=== PATIENT | female | born 1945 | race Caucasian/White ===

== ENCOUNTER 2021-10-07 18:27 | Inpatient (IN) | payer OTHER, MEDICARE ==
[~2021-10-07] VITALS: Ht 165.1 cm; Wt 91.2 kg
[2021-10-07 19:15] VITALS: BP_SYST 155
[2021-10-07 20:41] LABS: BASOPHILS # (AUTO) 0.1 K/uL (0.0-0.2); EOSINOPHILS % (AUTO) 0.6 % (0.0-4.0); HEMATOCRIT 40.3 % (36-48); HEMOGLOBIN 13.8 g/dL (12.0-16.0); LYMPHOCYTES # (AUTO) 1.1 K/uL (1.0-5.5); LYMPHOCYTES % (AUTO) 13.6 % (20.5-51.5); MEAN CORPUSCULAR HEMOGLOBIN 30 pg (27-31); MEAN CORPUSCULAR HGB CONC 34 % (32-36); MEAN CORPUSCULAR VOLUME 89 fL (79.0-98.0); MONOCYTES # (AUTO) 0.4 K/uL (0.0-1.0); MONOCYTES % (AUTO) 5.6 % (1.7-9.3); NEUTROPHILS # (AUTO) 6.4 K/uL (1.8-7.7); NEUTROPHILS % (AUTO) 79.2 % (40.0-70.0); PLATELET COUNT (AUTO) 198 K/uL (130-430); RED BLOOD CELL COUNT(AUTO) 4.52 MIL/uL (4.2-6.2); RED CELL DISTRIBUTION WIDTH 13.5 % (9.0-15.0); WHITE BLOOD COUNT (AUTO) 8.1 K/uL (4.8-10.8)
[2021-10-07] MEDS ORDERED: iohexoL 350 mgI/mL, 100 ML INFUS..BTL IV ONE (21:10)
[2021-10-07 21:40] LABS: ANION GAP 10 (5-15); CHLORIDE 104 mmol/L (98-107); CREATININE 0.89 mg/dL (0.55-1.30); GLUCOSE 95 mg/dL (70-99); POTASSIUM 3.9 mmol/L (3.5-5.1); SODIUM SERUM 140 mmol/L (136-145); UREA NITROGEN, BLOOD 22 mg/dL (8-21)
[2021-10-07 21:54] LABS: ALANINE AMINOTRANSFERASE 14 U/L (12-78); ALBUMIN 3.7 g/dL (3.4-4.8); ASPARTATE AMINOTRANSFERASE 25 U/L (10-37); TOTAL BILIRUBIN 0.8 mg/dL (0.0-1.0)
[2021-10-07] MEDS ORDERED: LR 1,000 ML IV ONE (22:45)
[2021-10-07] MEDS ORDERED: PANTOPRAZOLE SODIUM 40 MG/VIAL (PROTONIX) IVP ONE (22:45)
[2021-10-07] MEDS ORDERED: ASPIRIN 81 MG TAB.CHEW PO ONE (22:45)
[2021-10-07 23:31] LABS: BILIRUBIN,URINE NEGATIVE (NEGATIVE); BLOOD, URINE 1+ (NEGATIVE); CLARITY/URINE CLEAR (CLEAR); COLOR,URINE YELLOW (YELLOW); GLUCOSE,URINE NEGATIVE (NEGATIVE); KETONES,URINE 2+ (NEGATIVE); LEUKOCYTE ESTERASE ,URINE NEGATIVE (NEGATIVE); NITRITE, URINE POSITIVE (NEGATIVE); PH,URINE 5.5 (5.0-8.0); PROTEIN URINE NEGATIVE (NEGATIVE); UROBILINOGEN,URINE 0.2 (0.2-1.0)
[2021-10-07] MEDS ORDERED: NOREPINEPHRINE 4 MG/4 ML VIAL IV ONE (23:59)
[2021-10-08 01:28] VITALS: BP_SYST 142
[2021-10-08 07:17] LABS: ANION GAP 7 (5-15); CALCIUM 8.9 mg/dL (8.4-11.0); CHLORIDE 104 mmol/L (98-107); CREATININE 0.81 mg/dL (0.55-1.30); GLUCOSE 97 mg/dL (70-99); SODIUM SERUM 142 mmol/L (136-145); UREA NITROGEN, BLOOD 18 mg/dL (8-21)
[2021-10-08 07:23] LABS: PROTHROMBIN TIME 10.7 SECS (9.5-12.5)
[2021-10-08 07:26] LABS: ALANINE AMINOTRANSFERASE 13 U/L (12-78); ALBUMIN 3.6 g/dL (3.4-4.8); ASPARTATE AMINOTRANSFERASE 22 U/L (10-37); PHOSPHORUS 3.5 mg/dL (2.7-4.5); TOTAL BILIRUBIN 0.9 mg/dL (0.0-1.0)
[2021-10-08 07:43] LABS: BASOPHILS % (AUTO) 0.5 % (0.0-2.0); EOSINOPHILS # (AUTO) 0.1 K/uL (0.0-0.4); HEMATOCRIT 40.9 % (36-48); LYMPHOCYTES # (AUTO) 1.2 K/uL (1.0-5.5); LYMPHOCYTES % (AUTO) 18.3 % (20.5-51.5); MEAN CORPUSCULAR HEMOGLOBIN 31 pg (27-31); MEAN CORPUSCULAR HGB CONC 34 % (32-36); MEAN CORPUSCULAR VOLUME 90 fL (79.0-98.0); MONOCYTES # (AUTO) 0.6 K/uL (0.0-1.0); MONOCYTES % (AUTO) 8.1 % (1.7-9.3); NEUTROPHILS # (AUTO) 4.9 K/uL (1.8-7.7); NEUTROPHILS % (AUTO) 72.1 % (40.0-70.0); PLATELET COUNT (AUTO) 213 K/uL (130-430); RED BLOOD CELL COUNT(AUTO) 4.57 MIL/uL (4.2-6.2); RED CELL DISTRIBUTION WIDTH 13.3 % (9.0-15.0); WHITE BLOOD COUNT (AUTO) 6.8 K/uL (4.8-10.8)
[2021-10-08 08:00] VITALS: BP_SYST 140
[2021-10-08] MEDS: PANTOPRAZOLE SODIUM 40 MG TAB PO SCH ×2 (08:50→08:58)
[2021-10-08] MEDS: ASPIRIN 81 MG TABLET(ECOTRIN) PO SCH ×2 (08:51→08:58)
[2021-10-08] MEDS ORDERED: cefTRIAXone 1 GM in D5W 50 ML IV SCH (09:00)
[2021-10-08 09:03] LABS: CHOLESTEROL 152 mg/dL (<200); HDL CHOLESTEROL 55 mg/dL (>55); LDL CHOLESTEROL 78 mg/dL (<100); TRIGLYCERIDES 63 mg/dL (30-150)
[2021-10-08] MEDS ORDERED: CIPROFLOXACIN HCL 500 MG TABLET PO SCH (10:00)
[2021-10-08 12:00] VITALS: BP_SYST 142
[2021-10-08 16:00] VITALS: BP_SYST 125
[2021-10-08 20:00] VITALS: BP_SYST 149
[2021-10-08 22:36] VITALS: BP_SYST 149
[2021-10-09] MEDS ORDERED: CIPR250T4 PO (10:09)
== END 2021-10-08 23:20 | disposition home or self-care (01) | DRG 690 ==
LOC: SED 18:27 → STU 22:47
PROVIDERS: ADMIT Internal Medicine; ATTEND Internal Medicine
DX: N39.0 Urinary tract infection, site not specified (principal); G45.9 Transient cerebral ischemic attack, unspecified; E66.9 Obesity, unspecified; I70.90 Unspecified atherosclerosis; Z20.822 Contact with and (suspected) exposure to COVID-19; Z68.33 Body mass index [BMI] 33.0-33.9, adult; Z90.49 Acquired absence of other specified parts of digestive tract
CPT/HCPCS: 36415; 70450-TC; 70496; 70498; 70551; 71045; 76376; 80053; 80061; 81003; 83735; 83880; 84100; 84484; 85025; 85610-TC; 85730-TC; 93005; 93306; 99285; C9113; G0378; J0696; J7060; Q9967

== ENCOUNTER 2022-04-18 22:25 | Inpatient (IN) | payer OTHER, MEDICARE ==
[~2022-04-18] VITALS: Ht 167.6 cm; Wt 93.5 kg
[~2022-04-18 22:25] MED LIST: CIPR250T4 PO
[2022-04-18 22:26] VITALS: BP_SYST 144
--- NOTE | 2022-04-18 22:29 | NUR ---
ER examining patient while in the ambulance [facility] in the [address].
--- NOTE | 2022-04-18 22:31 | NUR ---
Accucheck done at 2231 .BS 118.
--- NOTE | 2022-04-18 22:33 | NUR ---
CODE STROKE ACTIVATED.
--- NOTE | 2022-04-18 22:34 | NUR ---
Time Neurology was page.
--- NOTE | 2022-04-18 22:34 | NUR ---
Pt taken to CT awake via theresa w/ ACLS protocol.
--- NOTE | 2022-04-18 22:45 | NUR ---
Placed in room 6 . Placed on cardiac monitor technician, blood pressure machine and pulse oximeter. To gown for exam. Side rails up. Report given to NICO VINCENT(REG).
--- NOTE | 2022-04-18 22:53 | NUR ---
PT IS HERE TO BE EVALUATED FOR SUPECTING A STROKE, HAD NAUSEA AND VOOMITING, ONSET OF DIZINNES ASSOCIATED WITH USTEADY GAIT, PER ACCOUNTING METHODS ANALYST PT WAS ABLE TO WALK BUT WOBBLY AND ALWAYS FALLING TO LEFT SIDE. PT AWAKE AND ALERT AND ORIENTED X 4, ABLE TO ANSWER QUESTIONS. EFT LEG HAD SOME DIFFICULTY TO LIFT UP.
[2022-04-18] MEDS ORDERED: iohexoL 350 mgI/mL, 100 ML INFUS..BTL IV ONE (22:55)
--- NOTE | 2022-04-18 23:00 | NUR ---
Dr Monreal (neurology responded) at 2300hr.
[2022-04-18] MEDS ORDERED: MECLIZINE HCL 25 MG TABLET (ANITVERT) PO ONE (23:30)
[2022-04-18 23:36] LABS: BASOPHILS % (AUTO) 0.4 % (0.0-2.0); EOSINOPHILS # (AUTO) 0.2 K/uL (0.0-0.4); EOSINOPHILS % (AUTO) 2.4 % (0.0-4.0); HEMATOCRIT 38.9 % (36-48); LYMPHOCYTES # (AUTO) 1.3 K/uL (1.0-5.5); LYMPHOCYTES % (AUTO) 19.3 % (20.5-51.5); MEAN CORPUSCULAR HEMOGLOBIN 31 pg (27-31); MEAN CORPUSCULAR HGB CONC 33 % (32-36); MEAN CORPUSCULAR VOLUME 91 fL (79.0-98.0); MONOCYTES # (AUTO) 0.5 K/uL (0.0-1.0); MONOCYTES % (AUTO) 7.2 % (1.7-9.3); NEUTROPHILS # (AUTO) 4.7 K/uL (1.8-7.7); NEUTROPHILS % (AUTO) 70.7 % (40.0-70.0); PLATELET COUNT (AUTO) 193 K/uL (130-430); RED BLOOD CELL COUNT(AUTO) 4.25 MIL/uL (4.2-6.2); RED CELL DISTRIBUTION WIDTH 13.8 % (9.0-15.0); WHITE BLOOD COUNT (AUTO) 6.6 K/uL (4.8-10.8)
[2022-04-19] MEDS ORDERED: ASPIRIN 325 MG TABLET PO ONE
[2022-04-19 00:02] LABS: PROTHROMBIN TIME 10.6 SECS (9.5-12.5)
--- NOTE | 2022-04-19 00:19 | NUR ---
COVID SAMPLE COLLECTED AND SENT TO LAB
[2022-04-19 00:22] LABS: ANION GAP 13 (5-15); CALCIUM 9.4 mg/dL (8.4-11.0); CHLORIDE 103 mmol/L (98-107); CREATININE 0.88 mg/dL (0.55-1.30); GLUCOSE 125 mg/dL (70-99); UREA NITROGEN, BLOOD 25 mg/dL (8-21)
[2022-04-19 00:28] LABS: ALANINE AMINOTRANSFERASE 20 U/L (12-78); ALBUMIN 3.7 g/dL (3.4-4.8); ASPARTATE AMINOTRANSFERASE 28 U/L (10-37); TOTAL BILIRUBIN 0.4 mg/dL (0.0-1.0)
[2022-04-19 01:21] LABS: BILIRUBIN,URINE NEGATIVE (NEGATIVE); BLOOD, URINE TRACE (NEGATIVE); COLOR,URINE YELLOW (YELLOW); GLUCOSE,URINE NEGATIVE (NEGATIVE); KETONES,URINE NEGATIVE (NEGATIVE); LEUKOCYTE ESTERASE ,URINE NEGATIVE (NEGATIVE); NITRITE, URINE POSITIVE (NEGATIVE); PROTEIN URINE NEGATIVE (NEGATIVE); UROBILINOGEN,URINE 0.2 (0.2-1.0)
[2022-04-19 01:22] LABS: CLARITY/URINE HAZY (CLEAR)
[2022-04-19 01:42] LABS: BACTERIA,URINE MANY /HPF (None Seen)
--- NOTE | 2022-04-19 02:00 | NUR ---
BED COMMODE IS PROVIDED. SHE VOIDED 500 ML.
[2022-04-19] MEDS ORDERED: NACL 0.9% 1,000 ML IV ONE (02:30)
[2022-04-19] MEDS ORDERED: HEPARIN SODIUM,PORCINE 5,000 UNITS/ML VIAL IVP ONE (02:45)
[2022-04-19] MEDS ORDERED: *HEPARIN PER PHARMACY XX ONE ×2 (02:45→03:45)
[2022-04-19] MEDS ORDERED: cefTRIAXone 2 GM VIAL ONE (03:10)
[2022-04-19] MEDS ORDERED: HEPARIN SODIUM,PORCINE 2000 UNITS/0.4 ML BOLUS IVP PRN (03:45)
[2022-04-19] MEDS ORDERED: HEPARIN SODIUM,PORCINE 3000 UNITS/0.6 ML BOLUS IVP PRN (03:45)
--- NOTE | 2022-04-19 04:00 | NUR ---
Admit bed requested Patient will be admitted to care of Dr.A RAMIREZ. Admitted to TELE unit. Diagnosis CVA Inpatient (Yes or No) YES Observation (Yes or No) NO Orientation concerns or request close to nursing station (Yes or No) NO Covid Status NEGATIVE On vent or bipap NO Isolation requirements NO Needs a sitter NO From Home (Yes or if No enter name of facility) YES Requires Dialysis (Yes or No) NO Med Rec Completed (Yes of No) PT UNABLE TO RECALL
[2022-04-19] MEDS: HEPARIN 25,000 UNITS in 250 ML PREMIX IV PRN (04:05)
[2022-04-19 05:18] VITALS: BP_SYST 145
--- NOTE | 2022-04-19 05:38 | NUR ---
RECEIVED CRITICAL LAB [id number] -Pt denies any chest pain,sob,pain,or any acute distress. will page Anneliese Rea regarding elevated troponin. cont to monitor pt.
--- NOTE | 2022-04-19 06:09 | NUR ---
Patient will be admitted to care of [facility]. Admitted to telemetry unit. Will go to room 121 c. Belongings list completed. Complete and up to date summary report printed. SBAR report to be given at bedside to Rosa Cox with opportunity for questions.
--- NOTE | 2022-04-19 06:15 | NUR ---
CRITICAL LAB [id number] ( TRENDING DOWN) -PAGED DR. RAMIREZ, Y NEW CONSULT FOR LITERACY COORDINATOR, WAITING FOR CALLBACK.
--- NOTE | 2022-04-19 06:25 | NUR ---
CLOSING NOTES; -ARRIVED TO MST UNIT AROUND 0505. Received patient from ER via gurney. Patient admitted with diagnosis of cva. Patient is awake, alert, oriented X 4. Patient oriented to hospital room, call light, toileting, pain management and safety-teach back done. Patient informed that I (Barbara) will be her nurse and that their room number is 121-c. Personal belongings checked and Belongings List documented. Pt arrived with Heparin drip @ 10ml/hr. Iv sites of l wrist +20 patent, no s/s any infiltration noted and another IV site of left ac #18 patent saline enedelia. Pt is able to ambulate with steady gaits supervision standby. Pt has slight weakness of left side of body. Cane is at bedside. Pt stated," I will have my takes $131 flores home and Berny-nurse witnessed and counted flores together at bedside and pt agreed correct flores amount $131 in her purse. BSC commode is at bedside. Side rails x2,Call light within reach. cont to monitor pt.
--- NOTE | 2022-04-19 06:55 | NUR ---
NOTES; NOTIFIED Anneliese SANTANA REGARDING CRITICAL [id number] ( ALSO INFORMED HIM PREVIOUS RESULT ([phone]). CRITICAL LAB [id number] ( TRENDING DOWN) -NOTIFIED Anneliese SANTANA NEW CONSULT FOR HEALTH TECHNICAL WRITER AND INFORMED OF CRITICAL TROPONIN RESULT. INFORMED MD THAT PT IS STABLE, DENIES ANY CHEST PAIN,PAIN,SOB,OR ANY ACUTE DISTRESS. EKG X1 TODAY PER MD. WILL PLACE ORDER AND WILL ENDORSE TO DAY SHIFT NURSE TO FOLLOW UP.
--- NOTE | 2022-04-19 07:30 | NUR ---
MORNING ROUNDS: PATIENT AWAKE LYING ON THE BED. ALERT AND ORIENTED X4. CALL LIGHT WITH IN REACH.HEPARIN DRIP RUNNING AT LEFT WRIST PER PROTOCOL. ENCOURAGED PATIENT TO CALL FOR ASSISTANCE AT ALL TIMES. SAFETY MEASURES RENDERED.NOT IN ANY DISTRESS.
[2022-04-19 08:00] VITALS: BP_SYST 138
[2022-04-19] MEDS ORDERED: LIP40 PO (10:25)
--- NOTE | 2022-04-19 10:50 | NUR ---
PTT RESULTS: PTT=64.6 ,NO ACTION NEEDED PER PROTOCOL.CONTINUE SAME RATE AND FOR DAILY PTT.
[2022-04-19] MEDS ORDERED: ONDANSETRON HCL 4 MG/2 ML VIAL IVP PRN (11:00)
[2022-04-19] MEDS ORDERED: NALOXONE HCL 0.4 MG/ML AMP (NARCAN) IVP PRN ×2 (11:00)
[2022-04-19] MEDS ORDERED: LORazepam 2 MG/ML VIAL IVP PRN (11:00)
[2022-04-19] MEDS ORDERED: HYDROcodone/ACETAMIN 5-325 MG TAB (NORCO/ VICODIN) PO PRN (11:00)
[2022-04-19] MEDS ORDERED: HYDROcodone/ACETAMIN 10-325 MG TAB PO PRN (11:00)
[2022-04-19] MEDS ORDERED: ACETAMINOPHEN 325 MG TABLET PO PRN ×2 (11:00→12:00)
[2022-04-19] MEDS ORDERED: ASPIRIN 81 MG TABLET(ECOTRIN) PO ONE (12:30)
[2022-04-19] MEDS ORDERED: NORMAL SALINE 5 ML DISP.SYRIN IVF SCH (14:00)
--- NOTE | 2022-04-19 15:07 | NUR ---
PAGED: LEFT MESSAGE C/O EXCHANGE YEN FOR VERIFICATION OF MEDICATIONS.
[2022-04-19] MEDS: NORMAL SALINE 5 ML DISP.SYRIN IVF SCH ×2 (15:33→21:10)
[2022-04-19] MEDS: cefTRIAXone 1 GM IVPB PREMIX 50 ML IV SCH (15:34)
--- NOTE | 2022-04-19 16:27 | NUR ---
P.T. NOTES P.T. EVAL COMPLETED; REFER TO EVAL FOR DETAILS.
--- NOTE | 2022-04-19 18:30 | NUR ---
EVENING ROUNDS: PATIENT STILL ON HEPARIN DRIP AT 10CC/H PER PROTOCOL. IV LEFT AC SALINE LOCK. CALL LIGHT WITH IN REACH. BED LOCKED AT LOWEST POSITION. FOR PTT IN AM PER PROTOCOL. NO ACTIVE BLEEDING NOTED. STABLE.
[2022-04-19 18:35] VITALS: BP_SYST 131
[2022-04-19 20:00] VITALS: BP_SYST 139
--- NOTE | 2022-04-19 20:00 | NUR ---
Opening Note-pt awake and oriented.Denied dizziness. used BSC with minimal assist. V/s stable afebrile. Tele- NSR.
[2022-04-19] MEDS ORDERED: ATORVASTATIN 20 MG TABLET PO SCH (21:00)
[2022-04-20 00:27] VITALS: BP_SYST 136
[2022-04-20] MEDS: HEPARIN 25,000 UNITS in 250 ML PREMIX IV PRN ×2 (05:19→08:21)
[2022-04-20] MEDS: NORMAL SALINE 5 ML DISP.SYRIN IVF SCH ×2 (05:19→13:21)
--- NOTE | 2022-04-20 06:42 | NUR ---
Closing note- pt awake and oriented. denied any distress.No c/o dizziness. v/s stable afebrile. Tele- SR.
[2022-04-20 07:24] LABS: BASOPHILS % (AUTO) 0.7 % (0.0-2.0); EOSINOPHILS # (AUTO) 0.3 K/uL (0.0-0.4); EOSINOPHILS % (AUTO) 4.5 % (0.0-4.0); HEMATOCRIT 37.1 % (36-48); HEMOGLOBIN 12.6 g/dL (12.0-16.0); LYMPHOCYTES % (AUTO) 16.4 % (20.5-51.5); MEAN CORPUSCULAR HEMOGLOBIN 31 pg (27-31); MEAN CORPUSCULAR HGB CONC 34 % (32-36); MEAN CORPUSCULAR VOLUME 90 fL (79.0-98.0); MONOCYTES # (AUTO) 0.4 K/uL (0.0-1.0); MONOCYTES % (AUTO) 7.1 % (1.7-9.3); NEUTROPHILS # (AUTO) 4.4 K/uL (1.8-7.7); NEUTROPHILS % (AUTO) 71.3 % (40.0-70.0); PLATELET COUNT (AUTO) 183 K/uL (130-430); RED BLOOD CELL COUNT(AUTO) 4.11 MIL/uL (4.2-6.2); WHITE BLOOD COUNT (AUTO) 6.2 K/uL (4.8-10.8)
--- NOTE | 2022-04-20 07:30 | NUR ---
MORNING ROUNDS: PATIENT SLEEPING DURING ROUNDS. HEPARIN DRIP RUNNING AT LEFT WRIST AT 10CC/H PER PROTOCOL.CALL LIGHT WITH IN REACH. BED LOCKED AT LOWEST POSITION. STABLE.
[2022-04-20 07:48] LABS: ANION GAP 8 (5-15); CALCIUM 8.9 mg/dL (8.4-11.0); CHLORIDE 105 mmol/L (98-107); CREATININE 0.84 mg/dL (0.55-1.30); GLUCOSE 115 mg/dL (70-99); UREA NITROGEN, BLOOD 15 mg/dL (8-21)
[2022-04-20 07:59] VITALS: BP_SYST 157
--- NOTE | 2022-04-20 08:21 | NUR ---
APTT RESULTS: APTT=46.6.ADJUST RATE TO 100UNITS/H AND REPEAT APTT AFTER 6HOURS OF ADJUSTED RATE PER PROTOCOL.
[2022-04-20] MEDS ORDERED: ASPIRIN 81 MG TABLET(ECOTRIN) PO SCH (09:00)
[2022-04-20 11:20] VITALS: BP_SYST 146
--- NOTE | 2022-04-20 12:00 | NUR ---
RN ROUNDS: PATIENT HAVING LUNCH. STABLE.
[2022-04-20] MEDS: cefTRIAXone 1 GM IVPB PREMIX 50 ML IV SCH (13:21)
[2022-04-20] MEDS ORDERED: POTASSIUM CHLORIDE 20 MEQ TAB.PRT.SR PO ONE (13:30)
--- NOTE | 2022-04-20 15:30 | NUR ---
DC HEPARIN DRIP: PER GENE KRAMER DC HEPARIN DRIP AND CANCELLED APTT BLOOD DRAWN.SPOKE WITH MANDI FROM LAB THAT IT WAS CANCELLED AND VIOLETA WELL.
[2022-04-20 15:45] VITALS: BP_SYST 138
--- NOTE | 2022-04-20 16:45 | NUR ---
DC ORDER: DR Henok RAMIREZ WROTE DISCHARGE ORDER HOME.
[2022-04-20] MEDS ORDERED: Aspirin Ec PO (16:48)
[2022-04-20 18:31] VITALS: BP_SYST 138
--- NOTE | 2022-04-20 19:30 | NUR ---
END OF SHIFT: ENDORSED TO NIGHT RN, PATIENT WITH DISCHARGE ORDER HOME. WAITING FOR RIDE. STABLE.
--- NOTE | 2022-04-20 20:30 | NUR ---
Patient d/c Home family here for burr picker IV d/c Tele box Removed , all personal belongings sent with patient orders carried out / instructions F/U visit with DR RICHARDSON Crowe IN ONE WEEK [phone] / .
[2022-04-20] MEDS ORDERED: POTASSIUM CHLORIDE 20 MEQ TAB.PRT.SR PO SCH (21:00)
--- NOTE | 2022-05-03 13:03 | NUR ---
Assistant Professor Of Communication SCRAP COLLECTOR made a Post Discharge Follow Up Phone Call to Sarah Garg who stated she is doing better but not quite 100%. Sarah has already made an apt. to see Dr. Acevedo for 05/17 but needed his address. SCRAP COLLECTOR gave address and inquired about any meds. Sarah just stated she received a phone call to start taking 1000mg of B12. SCRAP COLLECTOR will remain available as needed.
== END 2022-04-20 20:30 | disposition home or self-care (01) | DRG 689 ==
LOC: SED 22:25 → STU 04-19 03:53
PROVIDERS: ADMIT Preventive Medicine Preventive Medicine/Occupational Environmental Medicine; ATTEND Preventive Medicine Preventive Medicine/Occupational Environmental Medicine
DX: N30.01 Acute cystitis with hematuria (principal); I21.4 Non-ST elevation (NSTEMI) myocardial infarction; G45.9 Transient cerebral ischemic attack, unspecified; I10 Essential (primary) hypertension; Z20.822 Contact with and (suspected) exposure to COVID-19; R73.9 Hyperglycemia, unspecified; E78.5 Hyperlipidemia, unspecified; Z79.82 Long term (current) use of aspirin; Z86.73 Personal history of transient ischemic attack (TIA), and cerebral infarction without residual deficits
CPT/HCPCS: 36415; 70450-TC; 70496; 70498; 70551; 71045; 76376; 80048; 80053; 81000; 83880; 84484; 85025; 85610-TC; 85730-TC; 86886; 86900; 86901; 87040; 87086; 93005; 93306; 97112-GP; 97116-GP; 99291; G0378; J0696; J1644; J8597; Q9967